=== PATIENT | male | born 1965 | race African-American/Black ===

== ENCOUNTER → 2017-12-20 | Outpatient (CLI) | payer OTHER ==
--- NOTE | 2017-12-20 14:55 | Diagnostic Imaging Report ---
PROCEDURE:ANKLE 3+ VIEWS LEFT INDICATION:Twisted ankle, swelling COMPARISON:None. FINDINGS: Normal mineralization. No acute, displaced fracture or dislocation. No lytic or blastic lesion. Ankle mortise is preserved. Large anterior and moderate posterior calcaneal enthesophytes. No significant soft tissue swelling. CONCLUSION: No acute abnormalities. Naveen Llanos M.D. Dictated by: Naveen Llanos M.D. on 12/20/2017 at 15:00 Electronically approved by: Naveen Llanos M.D. on 12/20/2017 at 15:00
== END ==
LOC: RAD 12:04
PROVIDERS: ATTEND Family Medicine
DX: M25.572 Pain in left ankle and joints of left foot (principal)